=== PATIENT | male | born 1985 | race Caucasian/White ===

== ENCOUNTER 2023-09-24 06:09 | Observation (INO) ==
--- NOTE | 2023-09-05 09:30 | Anesthesiology Consultation ---
Date of Service September 05, 2023 Assessment & Plan Chart Review Chart Review: Acceptable Risk for Surgery and Patient NOT seen in Pre Admission Testing Consults Requested none History Surgery Operation Date: 09/19/23 07:45 Proposed Procedures p C6-C7 Anterior Cervical Discectomy and Fusion - Joe Nelson DO Height/Weight Height: 6 ft Weight: 86.183 kg Allergies Allergy/AdvReac Type Severity Reaction Status Date / Time No Known Allergies Allergy Verified 09/05/23 07:58 Medications Home Medications Medication Instructions Recorded Confirmed Last Taken fluoxetine 20 mg capsule 80 mg PO DAILY 09/05/23 09/05/23 Unknown pantoprazole 40 mg tablet,delayed 40 mg PO DAILY 09/05/23 09/05/23 Unknown release topiramate 50 mg capsule 50 mg PO HS 09/05/23 09/05/23 Unknown sprinkle,extended release 24 hr Past Medical History Medical History DJD (degenerative joint disease), cervical Bulging of cervical intervertebral disc right arm numb at all times, limited rom (very painful), c6-c7 Hx of colonic polyps Thyroid nodule recent finding, having an MRI on 09/07/23 at [facility] Depression with anxiety reports takes topamax for anxiety GERD (gastroesophageal reflux disease) Past Surgical History Surgical History History of esophagogastroduodenoscopy (EGD) Hx of colonoscopy with polypectomy Hx of repair of right rotator cuff (2020) Hx of cholecystectomy (2018) Social History Smoking Status: Never smoker Do You Dip or Chew Tobacco: No Hx Alcohol Use: Yes alcohol intake frequency: a few times a month Hx Substance Use: No substance use type: does not use Testing Laboratory Results Laboratory Tests 09/04/23 10:19 WBC 5.13 Hgb 12.5 L Hct 36.7 L Plt Count 298 PT 10.1 INR 0.9 APTT 25 Sodium 139 Potassium 4.0 Chloride 108 H Carbon Dioxide 23 BUN 8 Creatinine 1.06 Glucose 112 H Hemoglobin A1c 6.3 H Electrocardiogram Date: 09/04/23 Sinus bradycardia RSR' or QR pattern in V1 suggests right ventricular conduction delay Otherwise normal ECG No previous ECGs available
[~2023-09-24 06:09] MED LIST: ACETAMINOPHEN 500 MG TAB PO SCH; CeleBREX 200 MG CAP PO SCH; GABAPENTIN 900 MG DOSE PO SCH; LR 15ML/HR IV SCH; LR 60ML/HR IV SCH; ceFAZolin 2000MG 2,000 MG/15 ML SYR IV SCH
[2023-09-24] MEDS: ACETAMINOPHEN 500 MG TAB PO SCH (06:35)
[2023-09-24] MEDS: GABAPENTIN 900 MG DOSE PO SCH (06:35)
[2023-09-24] MEDS: CeleBREX 200 MG CAP PO SCH (06:35)
[2023-09-24] MEDS: LR 15ML/HR IV SCH (06:37)
[2023-09-24] MEDS ORDERED: GLYCOPYRROLATE 0.2 MG/ML VIAL ONE (06:47)
[2023-09-24] MEDS ORDERED: PROPOFOL IV EMULSION 10 MG/ML 20 ML VIAL IV ONE (06:47)
[2023-09-24] MEDS ORDERED: ROCURONIUM BROMIDE 10 MG/ML 5 ML VIAL IV ONE (06:47)
[2023-09-24] MEDS ORDERED: LIDOCAINE 2% 2 ML VIAL/AMP(20MG/ML) INFIL ONE (06:47)
[2023-09-24] MEDS ORDERED: ONDANSETRON INJ 2 MG/ML 2 ML VIAL ONE (06:47)
[2023-09-24] MEDS ORDERED: DEXAMETHASONE SOD INJ 4 MG/ML VIAL ONE (06:47)
[2023-09-24] MEDS ORDERED: fentaNYL citrate PF 100 MCG/2 ML VIAL ONE (06:48)
[2023-09-24] MEDS ORDERED: MIDAZOLAM HCL 1 MG/ML 2ML VIAL ONE (06:48)
[2023-09-24] MEDS ORDERED: SUGAMMADEX SODIUM 200 MG/2 ML VIAL IV ONE (06:52)
[2023-09-24] MEDS ORDERED: DexMEDEtomidine HCL IV 100 MCG/ML VIAL IV ONE (07:11)
[2023-09-24] MEDS ORDERED: ONDANSETRON INJ 2 MG/ML 2 ML VIAL IV PRN ×2 (07:21→10:58)
[2023-09-24] MEDS ORDERED: ePHEDrine sulfate 50 MG/ML AMP IV PRN (07:21)
[2023-09-24] MEDS ORDERED: ATROPINE SULFATE 0.1 MG/ML 10ML SYR IV PRN (07:21)
[2023-09-24] MEDS ORDERED: PROMETHAZINE HCL 6.25 MG in SODIUM CHLORIDE 0.9% 50 ML IV PRN (07:21)
[2023-09-24] MEDS ORDERED: HYDROmorphone INJ 1 MG/ML SYRINGE IV PRN ×2 (07:21→10:58)
--- NOTE | 2023-09-24 07:37 | History & Physical Bridge Note ---
Date of Service September 24, 2023 History & Physical Bridge Note I have examined the patient, reviewed the History & Physical and in the interval since the performance of the History & Physical I have noted the following changes of clinical significance: no changes noted
--- NOTE | 2023-09-24 07:38 | History & Physical Report ---
Date of Service September 24, 2023 Assessment & Plan (1) Herniation of cervical intervertebral disc with radiculopathy: Plan: C6-C7 anterior cervical discectomy and fusion History of Present Illness Chief Complaint: Neck and arm pain Primary Care Provider: NO PCP This is a 37-year-old male who presents with chronic persistent neck and arm pain is failed course of nonoperative care is here for surgical invention. Allergies Allergy/AdvReac Type Severity Reaction Status Date / Time No Known Allergies Allergy Verified 09/24/23 06:23 Home Medications Medication Instructions Recorded Confirmed Type fluoxetine 20 mg capsule 80 mg PO DAILY 09/05/23 09/24/23 History pantoprazole 40 mg tablet,delayed 40 mg PO DAILY 09/05/23 09/24/23 History release topiramate 50 mg capsule 50 mg PO HS 09/05/23 09/24/23 History sprinkle,extended release 24 hr Past Med/Surg History Problem List (Updated 09/24/23 @ 07:38 by Joe Nelson DO) Herniation of cervical intervertebral disc with radiculopathy Medical History DJD (degenerative joint disease), cervical Bulging of cervical intervertebral disc right arm numb at all times, limited rom (very painful), c6-c7 Hx of colonic polyps Thyroid nodule recent finding, having an MRI on 09/07/23 at [facility] Depression with anxiety reports takes topamax for anxiety GERD (gastroesophageal reflux disease) Surgical History History of esophagogastroduodenoscopy (EGD) Hx of colonoscopy with polypectomy Hx of repair of right rotator cuff (2020) Hx of cholecystectomy (2018) Social History Smoking Status: Never smoker Second Hand Exposure: No; Do You Dip or Chew Tobacco: No; Tobacco Cessation Education Requested by Patient: No Hx Alcohol Use: Yes Hx Substance Use: No Preferred Language: Tamazight Communication Ability: Effective [employer]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
[2023-09-24] MEDS: ceFAZolin 2000MG 2,000 MG/15 ML SYR IV SCH ×2 (07:49→16:39)
[2023-09-24] MEDS ORDERED: ePHEDrine sulfate 50 MG/5 ML SYR ONE (08:21)
[2023-09-24] MEDS: FLOSEAL HEMOSTATIC MATRIX 10ML TOP ONE (08:55)
[2023-09-24] MEDS: ceFAZolin 330 MG/ML 1 GM VIAL ONE (09:06)
--- NOTE | 2023-09-24 09:12 | Operative Report ---
Post Operative Report Pre & Post Diagnosis Operation Date: 09/24/23 07:45 Pre-Op Diagnosis: Herniation of cervical intervertebral disc with radiculopathy Post-Op Diagnosis: Herniation of cervical intervertebral disc with radiculopathy I identified the patient and participated in the time-out.: Yes Procedure Operation Date: 09/24/23 07:45 Actual Procedures Anterior cervical discectomy C6-C7. #1 anterior cervical discectomy with bilateral foraminotomies C6-C7. #2 anterior cervical arthrodesis C6-C7. #3 placement of Spira 8 mm cage filled with os design C6-C7. #4 application of the plate and screws across C6-C7. Surgeon Joe Nelson, DO State Epidemiologist Sonia Cuevas Estimated Blood Loss 50 Findings Consistent with Post-Op Diagnosis Specimens None Indications This is a 37-year-old male who presents problems diagnosis of failed course of nonoperative care is here for surgical invention. Description of Procedure Patient was met with identified informed consent obtained. Patient was then taken to the operative suite underwent patient placed in a supine position on the [place] table head [place] lateral. All bony prominences well-padded eyes inspected to ensure no external precipice upon the. This point the anterior cervical spine was prepped and draped in normal sterile fashion. The assistance of fluoroscopy identified the C6-C7 disc base and a transverse incision was placed along the right anterior aspect of the cervical spine overlying this region. Blunt dissection with the assistance of bipolar cautery is then performed down to and exposing the anterior cervical spine at C6-C7. Self- retaining retractors placed. Informed complete discectomy of C6-C7 up to the uncovertebral joints bilaterally. [place] distracting pins were utilized to assist in visualization. I removed all posterior annular fibers longitudinal ligament bilateral foraminotomies performed including removal of disc fragments. Endplates burred to subcortical bleeding bone and an 8 mm spiral cage filled with os design bone graft tapped in position. Distracting apparatus was removed and a plate and screws applied with the assistance of fluoroscopy. The incision was then copiously irrigated explored to ensure no damage to surrounding structures remaining bleeding. 10 round BLAIR drain inserted. The incision was then closed with 2 Vicryl in the fascia and 4 Monocryl for final closure. Steri-Strips sterile dressing placed. Patient waken taken to PACU in stable condition. Please note spinal cord monitoring visualized at the procedure no changes noted. Sonia Cuevas was present at the entire procedure and on the patient positioning complex course of the surgery and possible closure. Im ordering 10 grams of Triple [place] Collagen Powder (G-CON [id number]) to treat an incision wound that was caused by a spine procedure. The incision is approximately 2 cm(W) x 4 cm(L) into the joint (D) in size and is a full thickness wound. Triple [place] collagen comes in 1 gram packets so 10 packets were ordered. Given the size of the wound, with light to moderate exudate I chose to order a 10 day supply. The patient will be provided instructions for proper application of the collagen wound kit. The patient will be asked to apply the collagen powder daily and then cover it with sterile dressings dispensed. Collagen was selected as I expect the collagen to attract monocytes and fibroblasts, act as a sacrificial substrate for MMPs, and ultimately proved a matrix for tissue and vessel growth. The collagen will act as a primary dressing in this scenario. It is medically necessary for proper healing of these wounds to improve bioavailability and contact with each wound surface, this is also to help prevent infection of wounds and promote healing ultimately leading to a better healing outcome and limit the risk of infection. I attest to the content of the Intraoperative Record and any orders documented therein. Any exceptions are noted below.
[2023-09-24] MEDS: fentaNYL citrate PF 100 MCG/2 ML VIAL IV PRN (09:27)
[2023-09-24] MEDS: HYDROmorphone INJ 2 MG/ML SYR/VIAL IV PRN (09:50)
--- NOTE | 2023-09-24 10:45 | Anesthesiology Progress Note ---
Date of Service September 24, 2023 Anesthesia Post Procedure Vital Signs Vital Signs: Temp Pulse Pulse Resp BP Pulse Ox O2 Del Method 09/24/23 10:35 36.6 C 82 21 119/65 96 Room Air 09/24/23 10:25 73 13 117/69 96 Room Air 09/24/23 10:15 80 15 116/67 98 Room Air 09/24/23 10:05 70 13 112/62 97 Room Air 09/24/23 09:55 71 16 110/63 100 Room Air 09/24/23 09:45 83 17 117/69 100 Oxymask 09/24/23 09:35 77 17 117/69 100 Oxymask 09/24/23 09:25 77 18 113/65 100 Oxymask 09/24/23 09:19 36.6 C 79 20 110/58 L 100 Oxymask 09/24/23 06:25 36.8 C 66 20 134/85 97 Room Air O2 Flow Rate 09/24/23 10:35 09/24/23 10:25 09/24/23 10:15 09/24/23 10:05 09/24/23 09:55 09/24/23 09:45 3 09/24/23 09:35 6 09/24/23 09:25 6 09/24/23 09:19 6 09/24/23 06:25 Pain Intensity Bilateral Posterior Neck: Pain Intensity: 3 Transfer of Care Handoff Completed per policy Notes Mental Status: alert / awake / arousable Patient Amnestic to Procedure: Yes Nausea / Vomiting: adequately controlled Pain: adequately controlled Airway Patency, RR, SpO2: stable & adequate BP & HR: stable & adequate Hydration State: stable & adequate Anesthetic Complications: no major complications apparent and Pt Satisfied with anesthetic care
[2023-09-24] MEDS ORDERED: ONDANSETRON 4 MG OD TAB PO PRN (10:58)
[2023-09-24] MEDS ORDERED: ACETAMINOPHEN 1,000 MG/100 ML VIAL IV PRN (10:58)
[2023-09-24] MEDS ORDERED: METOCLOPRAMIDE HCL INJ 5 MG/ML 2 ML VIAL IV PRN (10:58)
[2023-09-24] MEDS ORDERED: NALOXONE HCL 0.4 MG/1 ML VIAL/CARP IV PRN (10:58)
[2023-09-24] MEDS ORDERED: MAGNESIUM HYDROXIDE SUSP 30 ML UDC PO PRN (10:58)
[2023-09-24] MEDS ORDERED: FAMOTIDINE 20 MG TAB PO PRN (10:58)
[2023-09-24] MEDS ORDERED: dexAMETHasone 8 MG in SYRINGE 0 ML IV PRN (10:58)
[2023-09-24] MEDS ORDERED: RACEPINEPHRINE 2.25% NEBU SOLN 0.5 ML VIAL INH PRN (10:58)
[2023-09-24] MEDS ORDERED: LORazepam 0.5 MG in SYRINGE 0.25 ML IV PRN (10:58)
[2023-09-24] MEDS ORDERED: hydrOXYzine HCl 25 MG TAB PO PRN (10:58)
[2023-09-24] MEDS ORDERED: bisacodyL 10 MG SUPP PR PRN (10:58)
[2023-09-24] MEDS ORDERED: PROMETHAZINE HCL 12.5 MG in SODIUM CHLORIDE 0.9% 50 ML IV PRN (10:58)
[2023-09-24] MEDS ORDERED: DO NOT ADMINISTER PNEUMOCOCCAL VACCINE PRN (10:58)
[2023-09-24] MEDS ORDERED: SOD PHOSPHATE/SOD BIPHOSPHATE ENEMA 132 ML BTL PR PRN (10:58)
[2023-09-24] MEDS ORDERED: ALUMINUM/MAGNESIUM SUSP 30 ML UDC PO PRN (10:58)
[2023-09-24] MEDS ORDERED: DO NOT ADMINISTER FLU VACCINE PRN (10:58)
[2023-09-24] MEDS ORDERED: diphenhydrAMINE Capsule 25 MG CAP PO PRN (10:58)
[2023-09-24] MEDS: HYDROmorphone INJ 0.5 MG/0.5 ML SYR IV PRN (11:35)
[2023-09-24] MEDS: LACTATED RINGER'S 1,000 ML IV SCH (12:47)
--- NOTE | 2023-09-24 12:59 | Fluoroscopy Report ---
INTRAOPERATIVE RADIOGRAPHS CLINICAL HISTORY: C6-C7 spinal fusion. Fluoro time: 10 seconds Ka,r: 0.90 mGy FINDINGS: 2 spot fluoroscopic views of the cervical spine are presented. There has been discectomy in the lower cervical spine which is reportedly at C6-C7. There is anterior fusion at this level the or thopedic hardware appears intact. An endotracheal tube is in place. IMPRESSION: Intraoperative images from cervical spine fusion surgery as above. Electronically signed by: Kenyon James M.D. 09/24/2023 12:58 PM
[2023-09-24] MEDS: oxyCODONE HCL IR 5 MG TAB (IMMEDIATE RELEASE) PO PRN (13:29)
[2023-09-24] MEDS: LORazepam 0.5 MG TAB PO PRN (18:34)
[2023-09-24] MEDS ORDERED: Nursing to Pharmacy Communication SCH (18:45)
[2023-09-24] MEDS: TOPIRAMATE 50 MG TAB PO SCH (20:22)
[2023-09-24] MEDS: DOCUSATE SODIUM/SENNA 50/8.6MG TAB PO SCH (20:22)
[2023-09-25] MEDS: POLYETHYLENE (MIRALAX) 17 GM PACK PO SCH (06:25)
[2023-09-25] MEDS: ACETAMINOPHEN 500 MG TAB PO PRN (06:25)
[2023-09-25] MEDS: traMADol HCL 50 MG TABLET PO PRN (08:55)
[2023-09-25] MEDS: dexAMETHasone 6 MG in SYRINGE 0 ML IV SCH (08:57)
[2023-09-25] MEDS: PANTOprazole 40 MG TAB PO SCH (08:59)
[2023-09-25] MEDS: FLUoxetine HCL 20 MG CAP PO SCH (08:59)
--- NOTE | 2023-09-25 09:47 | Discharge Summary ---
Date of Service September 25, 2023 Admission HPI Per Admitting Provider This is a 37-year-old male who presents with chronic persistent neck and arm pain is failed course of nonoperative care is here for surgical invention. Principal Diagnosis Cervical disc herniation with radiculopathy Discharge Data Allergies Allergy/AdvReac Type Severity Reaction Status Date / Time No Known Allergies Allergy Verified 09/24/23 06:23 Procedures Performed Operation Date: 09/24/23 07:45 Actual Procedures p C6-C7 Anterior Cervical Discectomy and Fusion, Spinal Cord Monitoring(Not Applicable) - Joe Nelson DO Ordered Studies 09/24/23 07:45 [place] cervical 2-3V Routine Hospital Course (1) Herniation of cervical intervertebral disc with radiculopathy: Patient 1 anterior cervical discectomy fusion trial as well as taken to orthopedic for postoperative. Postop 1 with swallowing well. No hoarseness. Arm symptoms markedly proved. Extra strength testing. AP drain decreasing probably. Subsidy discharged home. Discharge orders instructions from the chart for further review. Total Time Total Time Spent Total Time Spent (In Minutes): 20 minutes Discharge Plan Discharge Items Patient Disposition: Home - Self-Care Reason For Visit: Cervical Disc Disease, Protusion of Cervical Inter Discharge Diagnosis: Cervical disc herniation with radiculopathy Activity: As commented below Non-emergency contact: Primary Care Provider Call non-emergency contact if: you have any medication questions Follow-up/Referrals: PCP,CHAYITO [Primary Care Provider] - Diet: Regular Addtl Attending Provider Instructions: ACTIVITY RECOMMENDATIONS: SELF CARE INSTRUCTIONS AFTER CERVICAL FUSIONS 1. No smoking. Smoking drastically decreases the chance of a solid fusion. 2. No bending, lifting more than 5 pounds, or twisting (roll like a log when turning in bed). 3. You may shower 3 days after surgery. Thoroughly dry wound. Do not soak in the tub. 4. Cervical collar: Must be worn at all times including sleeping. You may remove the brace only to bath, eat and if you are sitting in a recliner. 5. Please walk as much as you can for exercise. Gradually increase the distance that you walk as your endurance increases. SPECIAL CARE INSTRUCTIONS: VERY IMPORTANT TO READ AND REVIEW A. Do not take any anti-inflammatory medications (i.e. Indocin, Advil, Aspirin, Naprosyn, Aleve, Motrin, etc.) as these may inhibit the chance of a solid fusion. Tylenol is okay to take. B. Your surgical incision has been closed with a cosmetic suture under the skin that will dissolve in about 6 weeks. In 14 days, you can use a pair of clean scissors and cut the suture that is left outside of the skin at the ends of your incision. C. Complications are uncommon, but please contact us if you have any signs or symptoms of: 1. wound infection (fever higher than 102.5 degrees F, redness, separation of wound, drainage, or increasing pain from the incision) 2. blood clots in legs (pain, swelling, redness and warmth in legs) 3. urinary tract infection (fever higher than 102.5 degrees, burning upon urination or increased frequency of urination) 4. nerve problems (inability to walk on your toes or heels, numbness, loss of bowel or bladder control) 5. any other symptoms that concern you. D. Please call the office at if you have any concerns or questions about your operation or recovery. MANAGING PAIN AFTER SPINAL SURGERY 1. Narcotic medication is intended for short-term use and will be provided for surgical pain. Surgical pain usually lasts for a period of 4-6 weeks. Narcotic medication includes Percocet, Vicodin, Darvocet, Tylenol #3 or Lortab. 2. Longer-term pain is more appropriately treated with non-narcotic medication such as Tylenol ES. 3. Muscle spasm is not appropriately treated with narcotics. Muscle relaxers such as Soma, Flexeril or Skelaxin can be used along with Tylenol ES. 4. Remember that we all live with some "aches and pains". This is not unusual or uncommon after an injury or as we get older. 5. We will provide appropriate medication within the normal guidelines of their prescribed use. We will also be very cautious and aware of potential abuse and extended duration of patients' medication needs. 6. Please allow 2-3 days to process refills. Prescriptions will not be mailed but must be picked up at the office. FOLLOW UP VISIT: Keep your scheduled follow-up appointment. Any questions, please call the office at . Pending Studies at Discharge: No Stand-Alone Forms: [employer], Smoking Cessation Medications and DC Order Prescriptions: New tramadol 50 mg tablet 50 mg PO Q6H PRN (Reason: pain, moderate) Qty: 20 0RF oxycodone 5 mg tablet 5 mg PO Q6H PRN (Reason: pain) Qty: 20 0RF Continued pantoprazole 40 mg Tablet,Delayed Release (Dr/Ec) 40 mg PO DAILY fluoxetine 20 mg Capsule 80 mg PO DAILY No Action topiramate 50 mg tablet 50 mg PO HS Discharge Orders: Discharge Order (Routine); Ordered 09/25/23 Ordered By: Joe Nelson Admission Data Admit Date/Time: 09/24/23 09:14 Attending Provider: Joe Nelson Admit Provider: Joe Nelson Primary Care Provider: PCP,CHAYITO
== END 2023-09-25 13:32 | disposition home or self-care (01) ==
LOC: ASU 06:09 → 3E 06:09